=== PATIENT | male | born 1975 | race American Indian/Alaskan Native ===

== ENCOUNTER 2017-10-27 23:19 | Emergency (ER) | payer MEDICAID ==
[~2017-10-27] VITALS: Ht 182.9 cm; Wt 104.3 kg
[2017-10-28] VITALS: BP 135/81
[2017-10-28] MEDS ORDERED: LIDOCAINE 1% (LOCAL ANESTH.) PF 5ml SDV IJ ONE (01:45)
[2017-10-28] MEDS ORDERED: TRIAMCINOLONE 40MG/ML 1ML VIAL IX ONE (01:45)
[2017-10-28] MEDS ORDERED: KETOROLAC TROMETH 60MG/2ML VIAL IM ONE (02:00)
== END 2017-10-28 03:00 | disposition home or self-care (01) ==
LOC: ER 23:23
DX: M75.02 Adhesive capsulitis of left shoulder (principal)
CPT/HCPCS: 20550; 73030; 96372; 99284; J1885; J3301